=== PATIENT | male | born 1975 | race Caucasian/White ===

== ENCOUNTER 2022-11-20 18:34 | Emergency (ER) | payer OTHER ==
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
[2022-11-21] MEDS ORDERED: Fluor-I-Strip/Ful-Flo OP ONE ×2 (00:41→00:57)
[2022-11-21] MEDS ORDERED: TETRACAINE 0.5% STERI-UNIT SOL OP ONE (00:42)
[2022-11-21] MEDS ORDERED: Eye-Stream Solution ONE (00:42)
[2022-11-21] MEDS ORDERED: Eye-Stream Solution OP ONE (00:57)
[2022-11-21 01:05] VITALS: PULSE 98
[2022-11-21 02:06] VITALS: BP 167/102; O2SAT 95
== END 2022-11-21 02:27 | disposition short-term general hospital (02) ==
LOC: ED 18:34
DX: S02.32XA Fracture of orbital floor, left side, initial encounter for closed fracture (principal); Y04.2XXA Assault by strike against or bumped into by another person, initial encounter; H53.2 Diplopia; I10 Essential (primary) hypertension; Z79.899 Other long term (current) drug therapy
CPT/HCPCS: 70450; 70486; 99284; A9270-GY